=== PATIENT | male | born 1990 | race Caucasian/White ===

== ENCOUNTER 2021-10-09 23:45 | Emergency (ER) | payer OTHER ==
[~2021-10-09] VITALS: Ht 177.8 cm; Wt 104.3 kg
--- NOTE | 2021-10-09 23:45 | NUR ---
[facility] TAKEN TO CHAIR A
[2021-10-09 23:47] VITALS: BP 154/109
--- NOTE | 2021-10-10 00:09 | NUR ---
PATIENT [facility] PATIENT EXAMINED BY DR. ALVAREZ. PATIENT MEDICALLY CLEARED AND RELEASED IN CUSTODY IN STABLE CONDITION. ORIGINAL PRE-BOOK FORM GIVEN TO OFFICER [facility], #[id number].
== END 2021-10-10 00:09 ==
LOC: MED 23:45
DX: J45.909 Unspecified asthma, uncomplicated (principal); Z02.89 Encounter for other administrative examinations; V98.8XXA Other specified transport accidents, initial encounter; Y93.89 Activity, other specified; Y92.89 Other specified places as the place of occurrence of the external cause; Y99.8 Other external cause status
CPT/HCPCS: 99283